=== PATIENT | female | born 1970 | race Caucasian/White ===

== ENCOUNTER 2020-02-21 12:53 | Inpatient (IN) | payer OTHER ==
[~2020-02-21] VITALS: Ht 162.6 cm; Wt 71.7 kg
[2020-02-21] VITALS (8 sets, daily range): BP systolic 117–125; BP diastolic 50–75
[2020-02-21 13:31] LABS: ABSOLUTE NEUTROPHILS 4.6 thou/uL (1.4-8.2); BASOPHILS 0.5 % (0.0-2.0); EOSINOPHILS 1.2 % (0.0-3.0); LYMPHOCYTES 23.7 % (24.0-44.0); MCH 20.2 pg (26.0-34.0); MCHC 30.1 g/dL (28.0-37.0); MCV 67.1 fL (80.0-100.0); MONOCYTES 8.2 % (1.0-8.0); PLATELET COUNT 379 thou/uL (150-400); POLYS 66.4 % (36.0-66.0); RDW 19.7 % (10.5-14.5)
[2020-02-21 13:35] LABS: HEMATOCRIT 19.5 % (37.0-47.0); HEMOGLOBIN 5.9 gm/dL (12.0-15.0)
[2020-02-21 13:37] LABS: ANION GAP 10 mmol/L (7-16); BUN 7 mg/dL (7-18); CALCIUM 8.5 mg/dL (8.5-10.1); CHLORIDE 103 mmol/L (98-107); CO2 25 mmol/L (21-32); CREATININE 0.7 mg/dL (0.6-1.0); GLUCOSE 96 mg/dL (74-106); POTASSIUM 4.2 mmol/L (3.5-5.1); SODIUM 138 mmol/L (136-145)
[2020-02-21 13:43] LABS: ALBUMIN 3.4 g/dL (3.4-5.0); DIRECT BILIRUBIN < 0.1 mg/dL (<0.1-0.2); SGOT 15 U/L (15-37); SGPT 18 U/L (30-65); TOTAL BILIRUBIN 0.2 mg/dL (<0.1-1.0); TOTAL PROTEIN 7.2 g/dL (6.4-8.2)
--- NOTE | 2020-02-21 15:22 | EKG ---
[facility] [address] [place] [address] ELECTROCARDIOGRAM REPORT Name: BEL NEWMAN Room #: 170-2 ADM IN M.R.#: [id number] Admission: 02/21/20 Attend Phys: Colton Santana MD Discharge: Date of : 72 Report #: [id number] THIS REPORT FOR: cc: Linda Dexter MD, Laurie Dawn MD Lundgren,Gus Banegas MD [facility] ~ THIS REPORT FOR: //name// [facility] ED Test Date: 2020-02-21 Test Time: 13:28:04 Pat Name: BEL NEWMAN Department: Room: 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1970 Requested By: Drea Elise Order Number: [id number] MD: Gus Sharma Measurements Intervals [place] Rate: 82 P: 51 ID: [id number] QRS: 22 QRSD: 94 T: 35 QT: 389 QTc: 455 Interpretive Statements Sinus rhythm Low voltage, precordial leads Abnormal R-wave progression, early transition Baseline wander in lead(s) II,III,aVF No previous ECG available for comparison Electronically Signed On 02-21-2020 15:21:10 CDT by Gus Sharma [email or web address] <ELECTRONICALLY SIGNED> By: Gus Sharma MD, [facility] 02/21/20 1521 1328 1328 Gus Sharma MD, FAC /EPI
[2020-02-21 17:27] LABS: ANISOCYTOSIS 2+; HYPOCHROMASIA 2+; MICROCYTES 1+
[2020-02-22 00:29] VITALS: BP 100/63
[2020-02-22 04:00] VITALS: BP 105/71
[2020-02-22 06:08] LABS: HEMATOCRIT 22.6 % (37.0-47.0); MCH 21.7 pg (26.0-34.0); MCHC 30.8 g/dL (28.0-37.0); MCV 70.3 fL (80.0-100.0); RBC 3.21 mil/uL (4.20-5.00); RDW 20.3 % (10.5-14.5); WBC 6.7 thou/uL (4.0-11.0)
[2020-02-22 06:22] LABS: CALCIUM 8.8 mg/dL (8.5-10.1); CREATININE 0.6 mg/dL (0.6-1.0); POTASSIUM 3.7 mmol/L (3.5-5.1)
[2020-02-22 07:40] VITALS: BP 199/67
--- NOTE | 2020-02-22 08:19 | EKG ---
[facility] [place] [address] [place] [address] ELECTROCARDIOGRAM REPORT Name: BEL NEWMAN Room #: 447-P ADM IN M.R.#: [id number] Admission: 02/21/20 Attend Phys: Colton Santana MD Discharge: Date of : 72 Report #: [id number] THIS REPORT FOR: cc: Linda Dexter MD, Laurie Dawn MD Lundgren,Gus Banegas MD 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 02/22/20 0818 [id number] [id number] Gus Sharma MD, [facility] /EPI
[2020-02-22 12:54] VITALS: BP 108/62; BP 120/73; BP 122/68
[2020-02-22 15:56] VITALS: BP 127/53
[2020-02-22 21:15] VITALS: BP 122/59
[2020-02-23 04:49] VITALS: BP 108/65
[2020-02-23 07:04] LABS: HEMATOCRIT 26.1 % (37.0-47.0); HEMOGLOBIN 8.2 gm/dL (12.0-15.0)
[2020-02-23 14:50] VITALS: BP 141/77
[2020-02-23 15:34] VITALS: BP 137/71
[2020-02-23 19:56] VITALS: BP 143/67
[2020-02-24 06:10] LABS: HEMATOCRIT 26.6 % (37.0-47.0); HEMOGLOBIN 8.5 gm/dL (12.0-15.0); MCH 23.5 pg (26.0-34.0); MCHC 31.9 g/dL (28.0-37.0); MCV 73.9 fL (80.0-100.0); RBC 3.61 mil/uL (4.20-5.00); WBC 10.9 thou/uL (4.0-11.0)
[2020-02-24 06:24] LABS: ALBUMIN 2.8 g/dL (3.4-5.0); CALCIUM 8.2 mg/dL (8.5-10.1); CREATININE 0.6 mg/dL (0.6-1.0); POTASSIUM 3.4 mmol/L (3.5-5.1); TOTAL BILIRUBIN 0.5 mg/dL (<0.1-1.0)
[2020-02-24 07:39] VITALS: BP 125/67
[2020-02-24 15:36] VITALS: BP 127/65
[2020-02-24 19:45] VITALS: BP 126/60
[2020-02-25 04:00] VITALS: BP 133/68
[2020-02-25 07:45] VITALS: BP 120/61
[2020-02-25 08:09] LABS: HEMATOCRIT 27.4 % (37.0-47.0); HEMOGLOBIN 8.6 gm/dL (12.0-15.0); MCH 23.5 pg (26.0-34.0); MCHC 31.3 g/dL (28.0-37.0); RBC 3.65 mil/uL (4.20-5.00); RDW 23.8 % (10.5-14.5); WBC 11.3 thou/uL (4.0-11.0)
[2020-02-25] MEDS ORDERED: FEOSOL325 M1 PO (08:17)
[2020-02-25] MEDS ORDERED: COLACE100 MG PO (08:17)
[2020-02-25] MEDS ORDERED: IBUPROFEN 600600 M1 PO (08:17)
[2020-02-25] MEDS ORDERED: HYDROCODON-ACE1 EAC7 PO (08:17)
[2020-02-25] MEDS ORDERED: ONDANSETRON HCL4 M2 PO (08:17)
[2020-02-25 14:00] VITALS: BP 133/68
--- NOTE | 2020-02-26 15:07 | PATH ---
[facility] [address] [place] [address] PATHOLOGY RPT PROCEDURE Name: VERONICA NEWMAN Alex Room #: 447-P [facility] IN M.R.#: [id number] Admission: 02/21/20 Date of : 72 Discharge: 02/25/20 Report #: [id number] Path Case #: [id number] [facility] Accession Number: [id number] . 01 Material submitted: . PART A: fallopian tube - RIGHT FALLOPIAN TUBE. Modifiers: right PART B: uterus - LEFT FALLOPIAN TUBE UTERUS AND CERVIX. Modifiers: left . 01 Clinical history: . Uterine fibrosis; symptomatic anemia . 02 Diagnosis: A. Fallopian tube, right, salpingectomy: - Mild congestion without significant diagnostic abnormalities. . B. Uterus, cervix, and left fallopian tube, hysterectomy with salpingectomy: - Disordered proliferative endometrium; negative for hyperplasia, atypia or malignancy. - Extensive adenomyosis. - Endometriosis of the serosal surface. - Cervix showing moderate chronic cervicitis along with reactive changes. - Tubo-endometrioid metaplasia identified within cervix. - Negative for dysplasia within cervix. - Fallopian tube with mild congestion without significant diagnostic abnormalities. (IUV:courtney; 02/26/2020) QMS 02/26/[address] [place] [address] . 02 Electronically signed: . Neha Broderick MD, Pathologist NPI- [id number] . 01 Gross description: . A. The specimen is received in formalin, labeled "Veronica Newman, right fallopian tube". Received is a fimbriated fallopian tube measuring 5.7 cm in length by up to 0.9 cm in diameter. The serosal surface is pink-purple, glistening in appearance. Sectioning reveals a patent lumen. The specimen is submitted representatively in cassette A1. . B. The specimen is received in formalin labeled " Veronica Newman, uterus, cervix, left fallopian tube". Received is a 516 g uterine corpus with attached lower uterine segment measuring from 12.6 cm from fundus to lower uterine segment, 11.6 cm from cornu to cornu, and 7.8 cm from anterior to posterior, separately submitted segment of previously opened cervical mucosa weighing 11 g, and detached fallopian tube weighing 5 g. The uterine serosa is pink-menendez and smooth in appearance with a moderate amount [address] [address] PATHOLOGY RPT PROCEDURE Name: AYSHA NEWMANCRISELDA Johnson Room #: 447-P [facility] IN ..#: [id number] Admission: 02/21/20 Date of : 72 Discharge: 02/25/20 Report #: [id number] Path Case #: [id number] of overlying adhesions. The uterine corpus cannot be oriented. The uterine corpus is opened laterally to reveal a pale menendez, corrugated endocervical canal measuring 3.5 cm in length. The endometrial cavity is triangular measuring 7.5 cm in length by 6.7 cm in width. The endometrium is pale menendez, glistening in appearance and measures 0.1 cm in thickness. Serial sectioning reveals a menendez-pink, trabeculated myometrium measuring up to 5.6 cm in thickness displaying moderate adenomyosis. . The separately submitted segment of cervical mucosa measures 6.3 x 2.5 x 1.7 cm in greatest dimensions, and cannot be oriented. The ectocervical mucosa is pale menendez, smooth to pink-red and slightly roughened in appearance. Sectioning through the cervix reveals multiple cystic structures measuring up to 0.5 cm filled with cloudy mucoid material. . The detached fimbriated fallopian tube measures 6.7 cm in length by up to 0.9 cm in diameter. The serosal surface is pink-hidalgo in appearance with a moderate amount of overlying adhesions. Sectioning reveals a patent lumen. The specimen is submitted representatively as follows: . B1-B2 cervix and opposite cervix B3-B4 lower uterine segment and opposite lower uterine segment B5 sales service representative sections of serosal adhesions B6-B7 endomyometrium and opposite endomyometrium B8 additional sales service representative sections of adenomyosis B9 sales service representative sections of separately submitted fallopian tube. (CAA; 02/23/2020) QAC/QAC 02/26/2020 1411 Local . 02 Pathologist provided ICD-10: N85.9, N80.0, N80.9, N72 . 02 CPT . 180021, 301737 Specimen Comment: A courtesy copy of this report has been sent to [phone] Specimen Comment: Report sent to Performed at: [address], [place] [id number] MD Tung Machado MD Phone: [phone] Performed at: [address] [place], [place] [id number] MD Neha Broderick MD Phone: [phone]
--- NOTE | 2020-03-01 10:57 | O ---
[address] [address] OPERATIVE REPORT Name: BEL NEWMAN Room #: 447-P [facility] IN M.R.#: [id number] Admission: 02/21/20 Attend Phys: Cotlon Santana MD Discharge: 02/25/20 Date of : 72 Report #: [id number] THIS REPORT FOR: cc: Linda Dexter MD, Laurie Dawn MD Farris, Kari C. DO ~ CC: Jill Santana DATE OF SERVICE: 02/23/2020 PREOPERATIVE DIAGNOSES: 1. Menorrhagia. 2. Uterine fibroids. 3. Anemia. POSTOPERATIVE DIAGNOSES: 1. Menorrhagia. 2. Uterine fibroids. 3. Anemia. 4. Endometriosis. OPERATIVE PROCEDURE: Total abdominal hysterectomy with bilateral salpingectomy. SURGEON: Dr. Jill Phelps. ANESTHESIA: General. INTRAVENOUS FLUIDS: Normal saline along with 1 unit of packed red blood cells. COMPLICATIONS: None. DESCRIPTION OF PROCEDURE: The patient was taken to the operating room where general anesthesia was administered and found to be adequate. She was then prepped and ha catheter inserted in the patient's bladder, then draped [address] [address] OPERATIVE REPORT Name: BEL NEWMAN Room #: 447-P DIS IN Lydia#: [id number] Admission: 02/21/20 Attend Phys: Colton Santana MD Discharge: 02/25/20 Date of : 72 Report #: [id number] in normal sterile fashion in the supine position A Pfannenstiel skin incision was made in the patient's abdomen approximately 2 cm above the symphysis pubis and carried through to the underlying layer of fascia. The fascia was nicked in the midline. The incision was carried laterally with Joseph scissors. The superior aspect of the fascial incision was grasped with Barbie clamps, elevated and the underlying rectus muscle dissected off bluntly as well as with Joesph scissors. Attention was then turned to the inferior aspect of this incision, which in similar fashion was grasped with Barbie clamps, elevated and the underlying rectus muscle dissected off bluntly and with Joseph scissors. The rectus muscles were in the midline. The peritoneum was identified and entered bluntly. The peritoneal incision was then extended superiorly and inferiorly with good visualization of the uterus. The Leila retractor was placed in the patient's abdomen. The bowel was packed away cephalad with moist laparotomy sponges. The uterus was identified and grasped with a Giorgio tenaculum and brought through the incision. The fallopian tubes and ovaries were noted to be adhered to the posterior aspect of the uterus due to endometriosis. These were bluntly dissected off with a moist laparotomy sponge. Once the right fallopian tube was freed, the handheld LigaSure device was used to transect under the fallopian tube across the mesosalpinx as well as perpendicular across the fallopian tube. This specimen was then handed off for pathology. The utero-ovarian ligament was then transected followed by the round ligament as well as down through the broad ligament on the patient's right. Attention was then turned to the patient's left and again the left fallopian tube was visualized followed out to its fimbriated end and using the handheld LigaSure device, it was transected across the mesosalpinx as well as perpendicular across the fallopian tube and this specimen was handed off for pathology. The left utero-ovarian ligament was then transected followed by the left round ligament and broad ligament. Excellent hemostasis was noted of bilateral pedicles. The vesicouterine peritoneum was then identified, tented upward and dissected off the anterior aspect of the uterus after transecting across with the Metzenbaum scissors. Using a Ray-Francis sponge, the vesicouterine peritoneum was further dissected off bluntly from the anterior aspect of the cervix. Using the handheld LigaSure device, the uterine arteries and cardinal ligament complexes were then transected bilaterally. Bleeding was noted at the right uterine artery. Therefore, it was clamped with a straight Toby clamp and suture ligated with 0 Vicryl. Further attention was given to the posterior cul-de-sac where the bowel was adhered to the posterior cul-de-sac. This was bluntly dissected off to be free and clear to clamp across the cervicovaginal junction. Once this was dissected off bluntly, Z clamps were then used to clamp underneath the cervix and the cervix was amputated from the top of the vagina using heavy Joseph scissors. Prior to amputating the cervix off due to the bulk of the uterus, was amputated with bovie cautery to allow better visualization and room to be able to transect across at the cervicovaginal junction with the [facility] [address] [place] [address] OPERATIVE REPORT Name: BEL NEWMAN Room #: 447-P [facility] IN M.R.#: [id number] Admission: 02/21/20 Attend Phys: Colton Santana MD Discharge: 02/25/20 Date of : 72 Report #: [id number] heavy Joseph scissors. The amputated portion was handed off for pathology as was the cervix after it was freed from the superior aspect of the vagina. The anterior and posterior aspects of the vaginal mucosa were then reapproximated using 0 Vicryl. Once the vaginal cuff was closed, irrigation was used. A small amount of posterior bleeding was noted. Therefore, a second 0 Vicryl was used with excellent hemostasis noted after oversewing the vaginal cuff. Again, irrigation was performed. All irrigant was removed from the patient's abdomen. Jignesh was placed over the vaginal cuff as well as all pedicles and the posterior cul-de-sac. The vesicouterine peritoneum was placed in its normal anatomical position. All sponges were removed from the patient's abdomen. The bowel was placed in its normal anatomical position. The Leila retractor was removed from the patient's abdomen. The muscle and peritoneum were then reapproximated using 2-0 Vicryl. Muscles were noted to have excellent hemostasis. The fascia was then closed with 0 PDS. The subcutaneous tissue was irrigated. Bovie cautery was used to obtain excellent hemostasis. The subcutaneous tissue was then reapproximated using 3-0 plain and the skin was closed with a subcuticular stitch using 4-0 Vicryl. The patient tolerated the procedure well. Sponge, lap and needle counts were reported as correct and the patient was taken to the recovery room in stable condition. <ELECTRONICALLY SIGNED> By: Jill Phelps DO 03/01/20 1057 0922 1007 Jill Phelps DO /nt
== END 2020-02-25 15:49 | disposition home or self-care (01) | DRG 742 ==
LOC: ER 12:53 → 4S 14:44 → EROBS 14:44 → 4S 16:27
PROVIDERS: Nurse Practitioner; Obstetrics & Gynecology; ADMIT Internal Medicine
PROC: 0UT90ZZ Resection of Uterus, Open Approach (ICD-10-PCS; principal; 2020-02-21)
PROC: 0UT20ZZ Resection of Bilateral Ovaries, Open Approach (ICD-10-PCS; principal; 2020-02-21)
PROC: 30233N1 Transfusion of Nonautologous Red Blood Cells into Peripheral Vein, Percutaneous Approach (ICD-10-PCS; principal; 2020-02-21)
PROC: 0UNF0ZZ Release Cul-de-sac, Open Approach (ICD-10-PCS; principal; 2020-02-21)
DX: D25.9 Leiomyoma of uterus, unspecified (principal); D62 Acute posthemorrhagic anemia; N93.9 Abnormal uterine and vaginal bleeding, unspecified; D63.8 Anemia in other chronic diseases classified elsewhere; R07.9 Chest pain, unspecified; N92.0 Excessive and frequent menstruation with regular cycle; N80.9 Endometriosis, unspecified; F41.1 Generalized anxiety disorder; Z90.49 Acquired absence of other specified parts of digestive tract; Z88.6 Allergy status to analgesic agent; Z79.899 Other long term (current) drug therapy; Z79.51 Long term (current) use of inhaled steroids; Z88.5 Allergy status to narcotic agent; N80.0 Endometriosis of uterus
CPT/HCPCS: 10195; 50010; 50093; 50101; 50386; 50455; 52287; 56524; 56526; 57092; 62110; 62900; 65130; 70005